=== PATIENT | female | born 1965 | race African-American/Black ===

== ENCOUNTER 2019-09-05 01:09 | Emergency (ER) | payer MEDICAID ==
[2019-09-05 01:42] LABS: #Basophils 0.1 thou/uL (0.0-0.2); #Lymphocytes 1.7 thou/uL (1.20-3.40); #Monocytes 0.6 thou/uL (0.11-0.59); #Neutrophils 1.2 thou/uL (1.40-6.50); %Basophils 2.1 % (0.0-1.0); %Eosinophils 21.4 % (0.0-10.0); %Lymphocytes 36.7 % (21.0-51.0); %Monocytes 12.4 % (0.0-10.0); %Neutrophils 27.4 % (42.0-75.0); Hemoglobin 13.3 g/dL (12.0-16.0); Mean Corpuscular HGB CONC 31.8 g/dL (32.0-36.0); Mean Corpuscular Hemoglobin 29.2 pg (27.0-31.0); Mean Corpuscular Volume 91.7 fL (78.0-98.0); Mean Platelet Volume 11.6 fL (7.4-10.4); Platelet Count 150 thou/uL (130-400); RBC Distribution Width 14.7 % (11.5-14.5); Red Blood Cell (RBC) Count 4.55 mill/uL (4.20-5.40); White Blood Cell (WBC) Count 4.5 thou/uL (4.8-10.8)
[2019-09-05] MEDS ORDERED: methylPREDNISolone Sod Succ/PF 125 MG/2 ML VIAL ONE (01:46)
[2019-09-05] MEDS ORDERED: Albuterol Sulfate 2.5 mg/3 ml Neb ONE ×2 (01:46→02:12)
[2019-09-05 01:53] LABS: ALT (SGPT) 27 U/L (8-55); AST (SGOT) 41 U/L (5-34); Albumin 3.3 g/dL (3.5-5.0); Alkaline Phosphatase 238 U/L (40-110); Anion Gap 16 mmol/L (10-20); BUN (Urea Nitrogen) 21 mg/dL (9.8-20.1); Bilirubin, Total 0.4 mg/dL (0.2-1.2); Calc. Creatinine Clearance 0 mL/min (70-130); Calcium 8.8 mg/dL (7.8-10.44); Carbon Dioxide 22 mmol/L (22-29); Chloride 106 mmol/L (98-107); Estimated GFR-MDRD 38; Globulin 4.7 g/dL (2.4-3.5); Glucose 96 mg/dL (70-105); Potassium 4.2 mmol/L (3.5-5.1); Sodium 140 mmol/L (136-145)
[2019-09-05] MEDS ORDERED: hydrALAZINE 20 MG/ML VIAL ONE (02:10)
[2019-09-05] MEDS ORDERED: Azithromycin 250 MG TAB ONE (02:18)
--- NOTE | 2019-09-05 07:54 | RAD ---
EXAM: Chest PA and lateral: HISTORY: Cough COMPARISON: 03/01/2013 FINDINGS: Heart: Normal cardiac silhouette Aorta: Atherosclerosis Pulmonary vessels: Normal Costophrenic angles: Costophrenic angles are clear. Lungs: No consolidation or masses. Pneumothorax: No pneumothorax Osseous structures: No osseous abnormalities IMPRESSION: No acute cardiopulmonary process.
== END 2019-09-05 02:56 | disposition home or self-care (01) ==
LOC: NAV ERS 01:09
DX: J20.9 Acute bronchitis, unspecified (principal); J45.909 Unspecified asthma, uncomplicated; I10 Essential (primary) hypertension; I25.10 Atherosclerotic heart disease of native coronary artery without angina pectoris; Z95.5 Presence of coronary angioplasty implant and graft; Z79.51 Long term (current) use of inhaled steroids; Z79.01 Long term (current) use of anticoagulants; Z79.899 Other long term (current) drug therapy
CPT/HCPCS: 36415; 71046; 80053; 83880; 84484; 85025; 93005; 94640; 96374; 96375; J0360; J2930; J7611; J7620

== ENCOUNTER 2022-03-11 10:46 | Emergency (ER) | payer OTHER ==
[2022-03-11] MEDS ORDERED: Sodium Chloride 0.9% 1,000 ML ONE (11:04)
[2022-03-11] MEDS ORDERED: methylPREDNISolone Sod Succ/PF 125 MG/2 ML VIAL ONE (11:04)
[2022-03-11 11:15] LABS: #Eosinphils 0.5 thou/uL (0.0-0.7); #Lymphocytes 0.9 thou/uL (1.20-3.40); #Monocytes 0.5 thou/uL (0.11-0.59); #Neutrophils 2.1 thou/uL (1.40-6.50); %Basophils 0.8 % (0.0-1.0); %Eosinophils 12.4 % (0.0-10.0); %Lymphocytes 22.7 % (21.0-51.0); %Monocytes 11.3 % (0.0-10.0); %Neutrophils 52.8 % (42.0-75.0); Hemoglobin 11.3 g/dL (12.0-16.0); Manual Diff?? NO; Mean Corpuscular HGB CONC 30.1 g/dL (32.0-36.0); Mean Corpuscular Hemoglobin 28.6 pg (27.0-31.0); Mean Corpuscular Volume 94.9 fL (78.0-98.0); Mean Platelet Volume 11.8 fL (7.4-10.4); Platelet Count 126 thou/uL (130-400); RBC Distribution Width 13.6 % (11.5-14.5); Red Blood Cell (RBC) Count 3.96 mill/uL (4.20-5.40)
[2022-03-11 11:32] LABS: ALT (SGPT) 20 U/L (8-55); AST (SGOT) 31 U/L (5-34); Albumin 3.4 g/dL (3.5-5.0); Alkaline Phosphatase 172 U/L (40-110); Anion Gap 19 mmol/L (10-20); BUN (Urea Nitrogen) 25 mg/dL (9.8-20.1); Bilirubin, Total 0.8 mg/dL (0.2-1.2); Calc. Creatinine Clearance 0 mL/min (70-130); Calcium 9.1 mg/dL (7.8-10.44); Carbon Dioxide 21 mmol/L (22-29); Chloride 107 mmol/L (98-107); Globulin 4.2 g/dL (2.4-3.5); Glucose 103 mg/dL (70-105); Protein, Total 7.6 g/dL (6.0-8.3); Sodium 143 mmol/L (136-145)
[2022-03-11] MEDS ORDERED: Aspirin Chewable 81 MG TAB ONE ×2 (11:53→11:56)
[2022-03-11] MEDS ORDERED: Furosemide 20 MG/2 ML VIAL ONE (11:53)
[2022-03-11 11:56] LABS: CKMB 3.9 ng/mL (0-6.6)
[2022-03-11 12:38] LABS: SARS-CoV-2 NAA Rapid Test Not Detected (NotDetected)
[2022-03-11] MEDS ORDERED: Acetaminophen/Codeine 30-300mg Tablet ONE (12:48)
[2022-03-11] MEDS ORDERED: hydrALAZINE 20 MG/ML VIAL ONE (12:59)
== END 2022-03-11 15:17 | disposition short-term general hospital (02) ==
LOC: NAV ERS 10:46
DX: J44.1 Chronic obstructive pulmonary disease with (acute) exacerbation (principal); I11.0 Hypertensive heart disease with heart failure; I50.9 Heart failure, unspecified; N28.9 Disorder of kidney and ureter, unspecified; R77.8 Other specified abnormalities of plasma proteins; I25.10 Atherosclerotic heart disease of native coronary artery without angina pectoris; I49.1 Atrial premature depolarization; Z20.822 Contact with and (suspected) exposure to COVID-19; Z95.5 Presence of coronary angioplasty implant and graft; Z87.19 Personal history of other diseases of the digestive system; Z79.899 Other long term (current) drug therapy
CPT/HCPCS: 71045; 80053; 82553; 83880; 84484; 85025; 93005; 94760; 96374; 96375; J0360; J1940; J2930; J7050; J7620

== ENCOUNTER 2024-10-26 12:56 | Emergency (ER) | payer OTHER ==
[2024-10-26 13:33] LABS: #Basophils 0.1 thou/uL (0.0-0.2); #Eosinophils 0.7 thou/uL (0.0-0.7); #Lymphocytes 0.7 thou/uL (1.20-3.40); #Monocytes 0.5 thou/uL (0.11-0.59); #Neutrophils 2.3 thou/uL (1.40-6.50); %Basophils 2.4 % (0.0-1.0); %Lymphocytes 17.3 % (21.0-51.0); %Monocytes 10.4 % (0.0-10.0); %Neutrophils 52.9 % (42.0-75.0); Hemoglobin 13.2 g/dL (12.0-16.0); Mean Corpuscular HGB CONC 31.5 g/dL (32.0-36.0); Mean Corpuscular Hemoglobin 27.6 pg (27.0-31.0); Mean Corpuscular Volume 87.7 fl (78.0-98.0); Mean Platelet Volume 10.7 fL (7.4-10.4); Platelet Count 165 10x3/uL (130-400); RBC Distribution Width 13.4 % (11.5-14.5); Red Blood Cell (RBC) Count 4.79 mill/uL (4.20-5.40); White Blood Cell (WBC) Count 4.3 10x3/uL (4.8-10.8)
[2024-10-26] MEDS ORDERED: Nitroglycerin 2% Ointment 1 INCH/1 GM Packet ONE ×2 (13:33→22:05)
[2024-10-26] MEDS ORDERED: Ipratropium/Albuterol 3 ML NEB ONE (13:33)
[2024-10-26] MEDS ORDERED: methylPREDNISolone Sod Succ/PF 125 MG/2 ML VIAL ONE (13:33)
[2024-10-26 13:53] LABS: Troponin I 0.031 ng/mL (< 0.028)
[2024-10-26 14:07] LABS: ALT (SGPT) 19 U/L (8-55); AST (SGOT) 26 U/L (5-34); Albumin 3.6 g/dL (3.5-5.0); Alkaline Phosphatase 223 U/L (40-110); Anion Gap 19 mmol/L (10-20); BUN (Urea Nitrogen) 25 mg/dL (9.8-20.1); Bilirubin, Total 0.7 mg/dL (0.2-1.2); Calc. Creatinine Clearance 0 mL/min (70-130); Calcium 9.2 mg/dL (7.8-10.44); Carbon Dioxide 28 mmol/L (22-29); Chloride 97 mmol/L (98-107); Estimated GFR 11; Globulin 4.9 g/dL (2.4-3.5); Glucose 123 mg/dL (70-105); Potassium 3.9 mmol/L (3.5-5.1); Protein, Total 8.5 g/dL (6.0-8.3); Sodium 140 mmol/L (136-145)
[2024-10-26] MEDS ORDERED: Albuterol 2.5 MG (3 mL) NEB ONE ×2 (14:36→21:15)
[2024-10-26 16:58] LABS: Troponin I 0.025 ng/mL (< 0.028)
[2024-10-26 20:04] LABS: Troponin I 0.024 ng/mL (< 0.028)
== END 2024-10-26 23:33 | disposition short-term general hospital (02) ==
LOC: NAV ERS 12:56
DX: J44.1 Chronic obstructive pulmonary disease with (acute) exacerbation (principal); I13.0 Hypertensive heart and chronic kidney disease with heart failure and stage 1 through stage 4 chronic kidney disease, or unspecified chronic kidney disease; N18.9 Chronic kidney disease, unspecified; I50.9 Heart failure, unspecified; R79.89 Other specified abnormal findings of blood chemistry; I25.10 Atherosclerotic heart disease of native coronary artery without angina pectoris; Z99.2 Dependence on renal dialysis; Z79.899 Other long term (current) drug therapy
CPT/HCPCS: 71045; 80053; 83880; 84484; 85025; 87428; 93005; 94640; 94760; 96374; J2919; J7611; J7620

== ENCOUNTER 2024-12-17 14:25 | Emergency (ER) | payer OTHER ==
[2024-12-17 15:58] LABS: ALT (SGPT) 27 U/L (Less than 34); AST (SGOT) 58 U/L (11-34); Albumin 3.3 g/dL (3.1-4.5); Alkaline Phosphatase 137 U/L (40-110); Anion Gap 21 mmol/L (10-20); BUN (Urea Nitrogen) 69 mg/dL (9.8-20.1); Bilirubin, Total 0.5 mg/dL (0.3-1.2); Calc. Creatinine Clearance 0 mL/min (70-130); Calcium 7.8 mg/dL (7.8-10.44); Carbon Dioxide 20 mmol/L (23-31); Chloride 103 mmol/L (98-107); Estimated GFR 5; Globulin 4.3 g/dL (2.4-3.5); Glucose 78 mg/dL (80-115); Potassium 4.8 mmol/L (3.5-5.1); Protein, Total 7.6 g/dL (5.8-8.1); Sodium 139 mmol/L (136-145)
[2024-12-17 16:04] LABS: Eosinophils 30 % (0-10); Hematocrit 30.4 % (36.0-47.0); Hemoglobin 9.3 g/dL (12.0-16.0); Hypochromia SLIGHT = 6-15 cells (100X) (0-5/hpf); Lymphocytes 22 % (21-51); MDiff Complete? YES; Mean Corpuscular HGB CONC 30.4 g/dL (32.0-36.0); Mean Corpuscular Hemoglobin 27.5 pg (27.0-31.0); Mean Corpuscular Volume 90.4 fl (78.0-98.0); Mean Platelet Volume 10.6 fL (7.4-10.4); Monocytes 5 % (0-10); Neutrophil 41 % (42-75); Platelet Adequacy Comment Appears Adequate; Platelet Count 125 10x3/uL (130-400); RBC Distribution Width 16.3 % (11.5-14.5); Red Blood Cell (RBC) Count 3.36 mill/uL (4.20-5.40); White Blood Cell (WBC) Count 4.9 10x3/uL (4.8-10.8)
[2024-12-17] MEDS ORDERED: fentaNYL 50 mcg/mL 1 mL Vial ONE (16:47)
[2024-12-17] MEDS ORDERED: Ondansetron PF 4 MG/2 ML Vial ONE (18:03)
[2024-12-17] MEDS ORDERED: Morphine 4 MG/ML VIAL ONE (18:03)
[2024-12-17] MEDS ORDERED: Amoxicillin/Potassium Clav 875 MG TAB ONE (18:43)
== END 2024-12-17 19:03 | disposition home or self-care (01) ==
LOC: NAV ERS 14:25
DX: L76.34 Postprocedural seroma of skin and subcutaneous tissue following other procedure (principal); I11.0 Hypertensive heart disease with heart failure; I50.9 Heart failure, unspecified; J44.89 Other specified chronic obstructive pulmonary disease; Z79.899 Other long term (current) drug therapy
CPT/HCPCS: 71250; 80053; 83605; 85025; 96374; 96375; J2270; J2405; J3010

== ENCOUNTER 2025-03-22 19:14 | Emergency (ER) | payer OTHER ==
[2025-03-22 20:26] LABS: ALT (SGPT) 39 U/L (Less than 34); AST (SGOT) 60 U/L (11-34); Albumin 2.8 g/dL (3.1-4.5); Alkaline Phosphatase 289 U/L (40-110); Anion Gap 23 mmol/L (10-20); BUN (Urea Nitrogen) 92 mg/dL (9.8-20.1); Bilirubin, Total 0.5 mg/dL (0.3-1.2); Calc. Creatinine Clearance 0 mL/min (70-130); Calcium 7.4 mg/dL (7.8-10.44); Carbon Dioxide 16 mmol/L (23-31); Chloride 102 mmol/L (98-107); Eosinophils 2 % (0-10); Estimated GFR 5; Glucose 91 mg/dL (80-115); Hemoglobin 12.7 g/dL (12.0-16.0); Lymphocytes 30 % (21-51); MDiff Complete? YES; Mean Corpuscular Hemoglobin 27.7 pg (27.0-31.0); Mean Corpuscular Volume 89.2 fl (78.0-98.0); Mean Platelet Volume 10.7 fL (7.4-10.4); Monocytes 17 % (0-10); Neutrophil 51 % (42-75); Platelet Adequacy Comment Appears Adequate; Platelet Count 100 10x3/uL (130-400); Potassium 4.6 mmol/L (3.5-5.1); Protein, Total 6.8 g/dL (5.8-8.1); RBC Distribution Width 13.3 % (11.5-14.5); Red Blood Cell (RBC) Count 4.59 mill/uL (4.20-5.40); Sodium 136 mmol/L (136-145); White Blood Cell (WBC) Count 3.7 10x3/uL (4.8-10.8)
[2025-03-22] MEDS ORDERED: Loperamide HCl 2 MG CAP ONE (20:37)
== END 2025-03-22 21:35 | disposition home or self-care (01) ==
LOC: NAV ERS 19:14
DX: E87.70 Fluid overload, unspecified (principal); I10 Essential (primary) hypertension; A09 Infectious gastroenteritis and colitis, unspecified; I13.2 Hypertensive heart and chronic kidney disease with heart failure and with stage 5 chronic kidney disease, or end stage renal disease; N18.6 End stage renal disease; I50.9 Heart failure, unspecified; Z99.2 Dependence on renal dialysis; I25.10 Atherosclerotic heart disease of native coronary artery without angina pectoris; J44.9 Chronic obstructive pulmonary disease, unspecified; Z86.73 Personal history of transient ischemic attack (TIA), and cerebral infarction without residual deficits; Z95.5 Presence of coronary angioplasty implant and graft; Z79.899 Other long term (current) drug therapy
CPT/HCPCS: 71045; 80053; 83880; 84443; 84484; 85025; 85379; 93005